=== PATIENT | female | born 1975 | race Caucasian/White ===

== ENCOUNTER 2016-09-01 11:10 | Emergency (ER) | payer OTHER ==
[~2016-09-01] VITALS: Ht 172.7 cm; Wt 56.0 kg
[~2016-09-01 11:10] MED LIST: LEVO88TA2 PO; OMEP40CA3 PO
[2016-09-01 12:14] LABS: BLOOD UREA NITROGEN 14 mg/dL (7-18)
[2016-09-01 12:16] LABS: HCG UR OBC PASS
[2016-09-01 12:19] LABS: ASPARTATE AMINO TRANSFERASE 25 U/L (15-37)
[2016-09-01 12:37] VITALS: BP 134/68
== END 2016-09-01 14:05 | disposition home or self-care (01) ==
LOC: ED 13:45
DX: R10.84 Generalized abdominal pain (principal); R11.0 Nausea
CPT/HCPCS: 36415; 74020; 76830; 80053; 81003; 81025; 83690; 85025; 99285

== ENCOUNTER → 2019-11-13 | Outpatient (CLI) | payer OTHER | END | disposition home or self-care (01) | LOC: RAD 17:30 | PROVIDERS: ATTEND Family Medicine | DX: R10.31 Right lower quadrant pain (principal); I31.3 Pericardial effusion (noninflammatory) | CPT/HCPCS: 74176 ==

== ENCOUNTER 2020-08-05 12:44 | Emergency (ER) | payer OTHER ==
[~2020-08-05] VITALS: Ht 170.2 cm; Wt 62.6 kg
[2020-08-05 13:45] LABS: BASOPHILS % (AUTO) 1 % (0-1); EOSINOPHILS % (AUTO) 1 % (1-7); LYMPHOCYTES % (AUTO) 25 % (22-44); MEAN CORPUSCULAR HGB CONC 33.9 g/dL (32.4-35.8); MEAN PLATELET VOLUME 7.5 fL (7.4-10.4); MONOCYTES % (AUTO) 5 % (2-9); NEUTROPHILS % (AUTO) 69 % (42-75); PLATELET COUNT 225 x10^3/uL (130-400); RED BLOOD COUNT 4.27 x10^6/uL (3.82-5.3); RED CELL DISTRIBUTION WIDTH 12.7 % (9.6-15.2)
[2020-08-05 13:49] LABS: MD NO
[2020-08-05 13:55] LABS: ALBUMIN 4.2 g/dL (3.4-5.0); ANION GAP 5 mmol/L (5-15); CALCIUM 8.6 mg/dL (8.5-10.1); CHLORIDE 109 mmol/L (98-107)
[2020-08-05 13:59] LABS: ALANINE AMINOTRANSFERASE 21 U/L (12-78); ALKALINE PHOSPHATASE 71 U/L (45-117); BILIRUBIN,TOTAL 0.6 mg/dL (0.2-1.0); CREATININE 0.68 mg/dL (0.55-1.02); TOTAL PROTEIN 7.2 g/dL (6.4-8.2)
--- NOTE | 2020-08-05 14:01 | NUR ---
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
--- NOTE | 2020-08-05 14:21 | NUR ---
ASSUMED ARE OF PATIENT. PATIENT REPORTS DIZZINESS X2 WEEKS THAT COMES AND GOES WITH NAUSEA. SLEEVE IRONER ON. NSR NOTED. VS STABLE. CALL LIGHT IN PLACE. FAMILY AT BEDSIDE. CALL LIGHT IN PLACE. WILL CONTINUE TO MONITOR.
--- NOTE | 2020-08-05 14:35 | NUR ---
pt seen by Dr Sullivan
[2020-08-05] MEDS ORDERED: MECLIZINE CHEWABLE 25 MG TAB ONE (14:40)
--- NOTE | 2020-08-05 14:58 | NUR ---
PT BACK FROM CT. VS STABLE. CALL LIGHT IN PLACE. FAMIYL AT BEDSIDE. WILL CONTINUE TO MONITOR.
[2020-08-05] MEDS ORDERED: MECLIZINE CHEWABLE 25 MG TAB PO ONE (15:00)
--- NOTE | 2020-08-05 15:59 | NUR ---
PT VERBALIZES DISCHARGE INSTRUCTIONS. PT TO FOLLOW UP WITH DR GARCÍA. PT HAS A RIDE HOME FROM FAMILY. VS STABLE. NO ACUTE DISTRESS NOTED. WILL CONTINUE TO MONITOR.
[2020-08-05 16:00] VITALS: BP 95/61
== END 2020-08-05 16:04 | disposition home or self-care (01) ==
LOC: ED 14:37
DX: R51.9 Headache, unspecified (principal); R42 Dizziness and giddiness; Z88.6 Allergy status to analgesic agent
CPT/HCPCS: 36415; 70450; 80053; 85025; 93005; 99285